=== PATIENT | female | born 1990 | race Caucasian/White ===

== ENCOUNTER 2019-03-31 18:48 | Emergency (ER) | payer OTHER, SELFPAY ==
--- NOTE | 2019-03-31 19:00 | ED.URI ---
HPI - URI/Sore Throat General Chief Complaint: Upper Respiratory Infection Stated Complaint: chest burning, throat pain, fever Time Seen by Provider: 03/31/19 19:01 Source: patient and RN notes reviewed Mode of arrival: ambulatory Limitations: no limitations History of Present Illness MD elicited complaint: fever, cough and sore throat Onset (ago): hour(s) (12) Consistency: constant Severity: moderate Description of mucous: clear Able to tolerate fluids by mouth: Yes Exacerbating factors: deep breaths Relieving factors: OTC cold medicine Context: sick contacts (daughter with positive flu) Associated symptoms: fever, chills, myalgias, rhinorrhea and cough Treatments prior to arrival: cold medicine Related Data Allergies Allergy/AdvReac Type Severity Reaction Status Date / Time No Known Allergies Allergy Unverified 12/15/16 13:22 Review of Systems Review of Systems: All systems reviewed & are unremarkable except as noted in HPI and below PMFSH Past Medical History Medical History (Updated 03/31/19 @ 19:23 by Palmer Mann MD) No active medical problems Surgical History Surgical History (Updated 03/31/19 @ 19:03 by Palmer Mann MD) History of tonsillectomy Family History Family History (Updated 05/19/16 @ 10:55 by DOCTOR UNKNOWN) Mother Diabetes mellitus Social History Social History (Updated 03/31/19 @ 19:03 by Palmer Mann MD) Smoking status: Current every day smoker Second hand tobacco smoke exposure: No Alcohol intake: never Substance use: never Gender identity (if verbalized by the patient): Female Exam Narrative: Exam Narrative: Female nurse in room during examination. Const: General: no acute distress, alert and ill appearing acutely Nutritional Appearance: well nourished Orientation/consciousness: patient oriented x3 HENMT: Head: normal to inspection Ears: external ears normal Face and sinus: normal facial exam Mouth: Yes lip normal and Yes moist mucous membranes Eyes: Conjunctivae: conjunctivae normal Pupils: Equal, round and reactive pupils present EOM: EOMs intact bilaterally Neck: Neck: normal visual inspection Resp: Effort & Inspection: normal respiratory effort Auscultation: rhonchi right upper (Clears with cough) and right lower (Clears with cough) Cardio: Rate: regular rate Rhythm: regular rhythm Heart sounds: no murmurs GI: GI Palp: Yes Soft to palpation and No Tenderness to palpation present (GI) Auscultation: normal bowel sounds Back/Spine/Pelvis: Cervical Spine: cervical ROM normal Thoracic/Lumbar Spine: thoraco-lumbar ROM normal Skin: General skin exam: normal color Rashes: no rashes Neuro: General: patient oriented x3 and moves all extremities Gait exam (Neuro): Normal gait present Extrem: General: normal to inspection and no clubbing, cyanosis or edema Psych: Appearance: grossly normal Mental Status: mental status grossly normal Affect: normal affect Attitude: cooperative Thought content: Yes Normal thought content present Course Vital Signs Vital signs: Vital Signs Temperature 36.6 C 03/31/19 19:03 Pulse Rate 99 03/31/19 19:03 Respiratory Rate 03/31/19 19:03 Blood Pressure 127/79 03/31/19 19:03 Pulse Oximetry 98 03/31/19 19:03 Temperature 36.6 C 03/31/19 19:03 Pulse Rate 118 H 03/31/19 19:47 Respiratory Rate 03/31/19 19:47 Blood Pressure 121/75 03/31/19 19:47 Pulse Oximetry 99 03/31/19 19:47 Discharge Plan Discharge Clinical Impression: Influenza Patient Disposition: Home, Self-Care Condition: Stable Instructions: Influenza (ED) Additional Instructions: Follow-up with primary care physician if not better in 1 week. Tylenol Motrin as needed for fever. Drink plenty of fluids. Prescriptions: New oseltamivir [Tamiflu] 75 mg capsule 75 mg PO BID 5 Days Qty: 10 RF: 0 albuterol sulfate 90 mcg/actuation HFA aerosol inhaler 2 puff INHALATION QID
[2019-03-31 19:03] VITALS: BP 127/79; PULSE 99; RESP 20; TEMP 36.6; O2SAT 98
[2019-03-31] MEDS: IPRATROPIUM 0.5 MG/ALBUTEROL SULFATE 2.5 MG AMPUL.NEB 3 ML INHALATION (19:20)
[2019-03-31 19:32] VITALS: PULSE 99
[2019-03-31] MEDS: OSELTAMIVIR PHOSPHATE 75 MG CAP PO (19:35)
[2019-03-31 19:47] VITALS: BP 121/75; PULSE 118; RESP 20; O2SAT 99
== END 2019-03-31 19:49 | disposition home or self-care (01) ==
PROVIDERS: Emergency Provider Emergency Medicine; PCP Internal Medicine
DX: J11.1 Influenza due to unidentified influenza virus with other respiratory manifestations (principal)
CPT/HCPCS: 94640; 99283; A9270

== ENCOUNTER 2020-02-24 07:49 | Outpatient (CLI) | payer OTHER, MEDICAID, SELFPAY ==
--- NOTE | ~2020-02-24 | US_ITS ---
EXAMINATION: US OB <= 14 weeks fetus DATE: 02/24/2020 08:52 INDICATION: Gestational dating. Amenorrhea. TECHNIQUE: Real-time transabdominal and transvaginal obstetric ultrasound. FINDINGS: No prior studies for comparison. The uterus measures 14.1 x 7.3 x 7.8 cm. There is an intrauterine gestational sac, with pole id entified. The crown rump length measures 2.77 cm, which correlates with a estimated gestational age of 9 weeks 4 days. heart tones are identified measuring 180 BPM. IMPRESSION: 1. SL IUP with an EGA of 9 weeks, 4 days (EDC by current ultrasound of 09/24/2020). Reviewed, dictated and finalized at location A. R DRUM WORKER IMPRESSION: 1. SL IUP with an EGA of 9 weeks, 4 days (EDC by current ultrasound of ).
== END 2020-02-24 07:50 | disposition home or self-care (01) ==
PROVIDERS: PCP Internal Medicine; Visit Provider Student in an Organized Health Care Education/Training Program
DX: Z36.9 Encounter for antenatal screening, unspecified (principal); Z3A.09 9 weeks gestation of pregnancy
CPT/HCPCS: 76801

== ENCOUNTER 2020-03-13 14:46 | Outpatient (CLI) | payer OTHER, MEDICAID, SELFPAY ==
[2020-03-13 15:27] LABS: Basophils Absolute Auto 0.1 K/mm3 (0.0-0.1); Basophils Percent Auto 0.7 % (0.2-1.2); Eosinophils Absolute Auto 0.2 K/mm3 (0-0.3); Eosinophils Percent Auto 2.5 % (0-4.4); Hematocrit 34.8 % (37.0-47.0); Hemoglobin 12.6 g/dL (12.0-15.0); Immature Granulocyte Absolute 0.02 K/mm3 (0.00-0.031); Immature Granulocyte Percent A 0.2 % (0-0.5); Lymphocytes Percent Auto 19.4 % (18.3-44.2); Mean Corpuscular HGB Conc 36.2 g/dl (32-36); Mean Corpuscular Hemoglobin 31.7 pg (26-34); Mean Corpuscular Volume 87.4 fl (80-100); Mean Platelet Volume 10.5 fl (7.4-10.4); Monocytes Absolute Auto 0.7 K/mm3 (0.1-0.6); Monocytes Percent Auto 7.4 % (2.6-8.5); Neutrophils Absolute Auto 6.1 K/mm3 (1.3-6.7); Neutrophils Percent Auto 69.8 % (45.5-73.1); Platelet Count Result 293 k/mm3 (150-375); Red Blood Count 3.98 M/mm3 (4.2-5.4); Red Cell Distribution Width 11.5 % (11.5-14.5); White Blood Count 8.8 K/mm3 (4.5-10.0)
[2020-03-13 15:31] LABS: Add Urine Microscopic? YES; Appearance Urine Clear (Clear); Bacteria Urine Trace /hpf; Bilirubin Urine Negative (Negative); Blood Urine Negative (Negative); Color Urine Yellow (Yellow); Glucose Urine UA Negative (Negative); Ketones Urine Negative (Negative); Leukocyte Esterase Ur 1+ LEU/UL (NEGATIVE); Mucus Urine Rare /lpf; Nitrate Urine Negative (Negative); Protein Urine Negative (Negative); RBC Urine 0-2 /hpf (0-2); Specific Grav Ur 1.016 (1.001-1.035); Squamous Epithelial Cell Urine Many /hpf (Few); Urobilinogen Urine Negative mg/dL (<2.0)
[2020-03-13 16:09] LABS: Thyroid Stimulating Hormone < 0.015 uIU/mL (0.465-4.680)
[2020-03-13 16:40] LABS: HIV 1/2 Ab P24 Ag Result Negative (Negative)
[2020-03-13 16:47] LABS: Vitamin D 25 Hydroxy 33.9 ng/mL
[2020-03-13 17:12] LABS: Hepatitis B Surface Antigen Negative (Negative); Rubella IgG Antibody 21.7 IU/ML
[2020-03-13 17:18] LABS: Hepatitis C Virus Antibody Negative (Negative)
[2020-03-14 09:10] LABS: Rapid Plasma Reagin Non-Reactive (NonReactive)
== END 2020-03-13 14:47 | disposition home or self-care (01) ==
PROVIDERS: PCP Internal Medicine; Visit Provider Student in an Organized Health Care Education/Training Program
DX: Z34.90 Encounter for supervision of normal pregnancy, unspecified, unspecified trimester (principal); Z3A.00 Weeks of gestation of pregnancy not specified
CPT/HCPCS: 36415; 81001; 82306; 84443; 85025; 86592; 86703; 86762; 86787; 86803; 86850; 86900; 86901; 87086; 87088; 87340; G0432

== ENCOUNTER 2020-03-18 12:46 | Outpatient (CLI) | payer OTHER, MEDICAID, SELFPAY ==
[2020-03-18 14:01] LABS: Thyroid Stimulating Hormone < 0.015 uIU/mL (0.465-4.680)
[2020-03-18 15:54] LABS: Free T4 Free Thyroxine 1.23 ng/mL (0.78-2.19)
[2020-03-20 06:09] LABS: Triiodothyronine T3 Free 3.4 pg/mL (2.3-4.2)
== END 2020-03-18 12:47 | disposition home or self-care (01) ==
LOC: ANHLAB 12:48
PROVIDERS: PCP Internal Medicine; Visit Provider Student in an Organized Health Care Education/Training Program
DX: O99.281 Endocrine, nutritional and metabolic diseases complicating pregnancy, first trimester (principal); Z3A.00 Weeks of gestation of pregnancy not specified; E03.9 Hypothyroidism, unspecified
CPT/HCPCS: 36415; 84439; 84443; 84481

== ENCOUNTER 2020-05-07 10:19 | Outpatient (CLI) | payer OTHER, MEDICAID, SELFPAY ==
--- NOTE | 2020-05-07 10:40 | ECG_ITS ---
Measurements Intervals Bath Rate: 77 P: 32 UT: 133 QRS: 52 QRSD: 90 T: 37 QT: 354 QTc: 403 Interpretive Statements SINUS RHYTHM BORDERLINE ST ABNORMALITY- ANTEROLATERAL LEADS BASELINE WANDER- V3 BORDERLINE ECG Electronically Signed On 05-07-2020 12:01:58 LEAF SUCKER OPERATOR by Baldemar Sánchez D.O.
== END 2020-05-07 10:20 | disposition home or self-care (01) ==
PROVIDERS: PCP Internal Medicine; Visit Provider Student in an Organized Health Care Education/Training Program
DX: R07.9 Chest pain, unspecified (principal); R94.31 Abnormal electrocardiogram [ECG] [EKG]
CPT/HCPCS: 93005

== ENCOUNTER 2020-07-04 09:44 | Outpatient (CLI) | payer OTHER, MEDICAID, SELFPAY ==
[2020-07-04 11:16] LABS: Basophils Absolute Auto 0.1 K/mm3 (0.0-0.1); Basophils Percent Auto 0.5 % (0.2-1.2); Eosinophils Absolute Auto 0.1 K/mm3 (0-0.3); Eosinophils Percent Auto 1.1 % (0-4.4); Hematocrit 28.7 % (37.0-47.0); Hemoglobin 9.6 g/dL (12.0-15.0); Immature Granulocyte Absolute 0.11 K/mm3 (0.00-0.031); Immature Granulocyte Percent A 1.1 % (0-0.5); Lymphocytes Absolute Auto 1.65 K/mm3 (0.9-3.2); Lymphocytes Percent Auto 15.8 % (18.3-44.2); Mean Corpuscular HGB Conc 33.4 g/dl (32-36); Mean Corpuscular Hemoglobin 29.1 pg (26-34); Mean Platelet Volume 10.4 fl (7.4-10.4); Monocytes Absolute Auto 0.6 K/mm3 (0.1-0.6); Monocytes Percent Auto 5.8 % (2.6-8.5); Neutrophils Absolute Auto 7.9 K/mm3 (1.3-6.7); Neutrophils Percent Auto 75.7 % (45.5-73.1); Platelet Count Result 278 k/mm3 (150-375); Red Cell Distribution Width 11.9 % (11.5-14.5); White Blood Count 10.4 K/mm3 (4.5-10.0)
[2020-07-04 11:26] LABS: Glucose 1 Hour PP 50gm Dose 138 mg/dL
== END 2020-07-04 09:45 | disposition home or self-care (01) ==
LOC: ANHLAB 09:46
PROVIDERS: PCP Internal Medicine; Visit Provider Student in an Organized Health Care Education/Training Program
DX: Z34.90 Encounter for supervision of normal pregnancy, unspecified, unspecified trimester (principal); Z3A.00 Weeks of gestation of pregnancy not specified
CPT/HCPCS: 36415; 82947; 85025

== ENCOUNTER 2020-07-11 08:50 | Outpatient (CLI) | payer OTHER, MEDICAID, SELFPAY ==
[2020-07-11 09:30] LABS: Glucose Fasting Gestational 91 mg/dL (>/=95)
[2020-07-11 11:01] LABS: Glucose 1 Hour Gest 154 mg/dL (>/=180)
[2020-07-11 12:02] LABS: Glucose 2 Hour Gest 168 mg/dL (>/= 155)
[2020-07-11 13:03] LABS: Glucose 3 Hour Gest 114 mg/dL (>/=140)
== END 2020-07-11 08:51 | disposition home or self-care (01) ==
PROVIDERS: PCP Internal Medicine; Visit Provider Student in an Organized Health Care Education/Training Program
DX: R73.09 Other abnormal glucose (principal)
CPT/HCPCS: 36415; 82951; 82952

== ENCOUNTER 2020-08-08 09:17 | Observation (INO) | payer OTHER, MEDICAID, SELFPAY ==
[2020-08-08 09:39] VITALS: BP 116/65; PULSE 103
[2020-08-08 09:41] VITALS: BMI 29.2
--- NOTE | 2020-08-08 09:42 | OBADM ---
This patient, Andra Mckeon, admitted to the OB room OB Post 116 for observation. Patient/family oriented to hospital policies and general routines including ID bracelet, bed and alarms, visiting hours, pain management, procedures, bathroom and other care routines, personal items, smoking policy, room service/diet, and visiting hours. Patient/Family are encouraged to report perceived risks to care and to ask questions if they do not understand what they are told or what they should do.
[2020-08-08 10:14] VITALS: BP 116/65; PULSE 93
--- NOTE | 2020-08-08 10:16 | PC.NURSE ---
1008- Spoke with Dr. Urbina, reactive NST, Rom plus negative. Orders to discharge to home.
--- NOTE | 2020-08-28 16:21 | PM.OBTRLD ---
OB - Triage/Final Diagnosis Visit Information Comments/Additional reasons for admission: I have assessed the risk for this patient, Andra Mckeon, and determined that she would benefit from observation care. Final Diagnosis (1) Vaginal discharge during : Code(s): O26.899 - Other specified related conditions, unspecified trimester; N89.8 - Other specified noninflammatory disorders of vagina Status: Acute
== END 2020-08-08 10:15 | disposition home or self-care (01) ==
PROVIDERS: Admitting Provider Student in an Organized Health Care Education/Training Program; PCP Internal Medicine; Visit Provider Student in an Organized Health Care Education/Training Program
DX: O26.893 Other specified pregnancy related conditions, third trimester (principal); N89.8 Other specified noninflammatory disorders of vagina; Z3A.32 32 weeks gestation of pregnancy
CPT/HCPCS: 59025; 84112; G0378; G0379

== ENCOUNTER 2020-08-14 15:22 | Outpatient (CLI) | payer OTHER, MEDICAID, SELFPAY ==
[2020-08-14 16:00] LABS: Basophils Absolute Auto 0.1 K/mm3 (0.0-0.1); Basophils Percent Auto 0.6 % (0.2-1.2); Eosinophils Absolute Auto 0.1 K/mm3 (0-0.3); Hematocrit 26.2 % (37.0-47.0); Hemoglobin 8.3 g/dL (12.0-15.0); Immature Granulocyte Absolute 0.11 K/mm3 (0.00-0.031); Immature Granulocyte Percent A 0.9 % (0-0.5); Lymphocytes Absolute Auto 2.39 K/mm3 (0.9-3.2); Mean Corpuscular HGB Conc 31.7 g/dl (32-36); Mean Corpuscular Hemoglobin 26.9 pg (26-34); Mean Corpuscular Volume 84.8 fl (80-100); Mean Platelet Volume 10.6 fl (7.4-10.4); Monocytes Percent Auto 8.2 % (2.6-8.5); Neutrophils Absolute Auto 8.9 K/mm3 (1.3-6.7); Neutrophils Percent Auto 70.3 % (45.5-73.1); Platelet Count Result 375 k/mm3 (150-375); Red Blood Count 3.09 M/mm3 (4.2-5.4); Red Cell Distribution Width 13.2 % (11.5-14.5); White Blood Count 12.6 K/mm3 (4.5-10.0)
[2020-08-14 16:11] LABS: Alanine Aminotransferase 10 U/L (4-35); Albumin Level 3.8 g/dL (3.5-5.1); Alkaline Phosphatase 110 U/L (38-126); Anion Gap 11 mmol/L (8-16); Aspartate Amino Transferase 18 U/L (14-36); Bilirubin,Total 0.3 mg/dL (0.2-1.3); Blood Urea Nitrogen 4 mg/dL (7-17); Calcium 8.9 mg/dL (8.4-10.2); Carbon Dioxide 19 mmol/L (22-30); Chloride 108 mmol/L (98-107); Estimated Glomerular Filt Rate > 60; Glucose 91 mg/dL (65-105); Potassium 3.3 mmol/L (3.4-5.0); Sodium 138 mmol/L (137-145)
[2020-08-14 16:19] LABS: NT Pro B Type Natriuretic Pept 120 pg/mL (5-100)
[2020-08-14 16:41] LABS: Thyroid Stimulating Hormone 0.348 uIU/mL (0.465-4.680)
[2020-08-14 16:51] LABS: HIV 1/2 Ab P24 Ag Result Negative (Negative)
[2020-08-14 17:16] LABS: Ferritin 6.98 ng/mL (6.24-137)
[2020-08-15 06:49] LABS: Rapid Plasma Reagin Non-Reactive (NonReactive)
== END 2020-08-14 15:23 | disposition home or self-care (01) ==
PROVIDERS: PCP Internal Medicine; Referring Provider Internal Medicine Cardiovascular Disease; Visit Provider Student in an Organized Health Care Education/Training Program
DX: Z34.90 Encounter for supervision of normal pregnancy, unspecified, unspecified trimester (principal); R06.00 Dyspnea, unspecified; Z3A.00 Weeks of gestation of pregnancy not specified
CPT/HCPCS: 36415; 80053; 82728; 83880; 84443; 85025; 86592; 86703; G0432

== ENCOUNTER 2020-08-15 11:11 | Outpatient (CLI) | payer OTHER, MEDICAID, SELFPAY ==
[2020-08-15 11:34] LABS: Immature Reticulocyte Fraction 24.3 % (3.0-15.9); Reticulocyte Percent 2.12 % (0.7-4.3); Reticulocytes Absolute 0.07 B/L (32.2-175.7)
[2020-08-15 11:47] LABS: Iron 29 ug/dL (37-170)
[2020-08-15 11:57] LABS: Percent Iron Saturation 5 % (20-50)
== END 2020-08-15 11:12 | disposition home or self-care (01) ==
LOC: ANHLAB 11:14
PROVIDERS: PCP Internal Medicine; Visit Provider Student in an Organized Health Care Education/Training Program
DX: O99.019 Anemia complicating pregnancy, unspecified trimester (principal); Z3A.00 Weeks of gestation of pregnancy not specified
CPT/HCPCS: 36415; 83540; 83550; 85046

== ENCOUNTER 2020-09-06 22:38 | Observation (INO) | payer OTHER, MEDICAID, SELFPAY ==
[2020-09-07] VITALS (13 sets, daily range): BP systolic 108–136; BP diastolic 58–84; PULSE 86–101; BMI 30.7
[2020-09-07 01:01] LABS: Basophils Absolute Auto 0.1 K/mm3 (0.0-0.1); Basophils Percent Auto 0.6 % (0.2-1.2); Eosinophils Absolute Auto 0.2 K/mm3 (0-0.3); Eosinophils Percent Auto 1.1 % (0-4.4); Hematocrit 31.3 % (37.0-47.0); Hemoglobin 9.8 g/dL (12.0-15.0); Immature Granulocyte Absolute 0.78 K/mm3 (0.00-0.031); Immature Granulocyte Percent A 4.6 % (0-0.5); Lymphocytes Absolute Auto 2.48 K/mm3 (0.9-3.2); Lymphocytes Percent Auto 14.6 % (18.3-44.2); Mean Corpuscular HGB Conc 31.3 g/dl (32-36); Mean Corpuscular Hemoglobin 26.5 pg (26-34); Mean Corpuscular Volume 84.6 fl (80-100); Mean Platelet Volume 10.6 fl (7.4-10.4); Monocytes Absolute Auto 1.4 K/mm3 (0.1-0.6); Monocytes Percent Auto 8.4 % (2.6-8.5); Neutrophils Percent Auto 70.7 % (45.5-73.1); Nucleated Red Blood Cells Absolute Auto 0.1 K/mm3 (0.0-0.012); Nucleated Red Blood Cells Perc 0.5 % (0.0-0.2); Platelet Count Result 328 k/mm3 (150-375); Red Cell Distribution Width 14.1 % (11.5-14.5)
[2020-09-07] MEDS: ONDANSETRON INJ 4 MG/2 ML VIAL IV PUSH (01:18)
--- NOTE | 2020-09-07 02:14 | LDADM ---
This patient, Andra Mckeon, was admitted to Labor/Delivery/Recovery 104 on 09/06/20 at 22:38. Plans for labor, pain management and were discussed with patient. Patient/family oriented to hospital policies and general routines including ID bracelet, bed and alarms, visiting hours, pain management, procedures, bathroom and other care routines, personal items, smoking policy, room service/diet and guest tray routines, infant security routines, and visiting hours. Patient/Family are encouraged to report perceived risks to care and to ask questions if they do not understand what they are told or what they should do. See OBIX for further documentation.
--- NOTE | 2020-09-07 03:44 | WPDANESEPP ---
Anes - Eval Pre Procedure Procedure: labor epidural Date/Time: 09/07/20 03:44 Surgeon: jose armando Pre Op Diagnosis: Contractions Patient Data Age: 30 Gender: F Height: Weight: Last Vital Signs Pulse 101 H 09/07/20 03:30 BP 130/76 09/07/20 03:30 Allergies Allergy/AdvReac Type Severity Reaction Status Date / Time No Known Allergies Allergy Verified 09/03/20 12:38 Home Medications Medication Instructions Recorded Confirmed Type prenat.vits,freya,[id number]-ghcv-fotzb 1 tablet PO DAILY 02/14/20 09/03/20 History ondansetron 4 mg disintegrating 4 mg PO Q6H PRN #30 tablet 03/15/20 09/03/20 Rx tablet lansoprazole 15 mg capsule,delayed 15 mg PO DAILY 06/04/20 09/03/20 History release ferrous sulfate 325 mg (65 mg 325 mg PO DAILY #90 tablet 07/04/20 09/03/20 Rx iron) tablet Laboratory Tests 09/07/20 09/07/20 00:41 00:41 WBC 17.0 K/mm3 H K/mm3 (4.5-10.0) RBC 3.70 M/mm3 L M/mm3 (4.2-5.4) Hgb 9.8 g/dL L g/dL (12.0-15.0) Hct 31.3 % L % (37.0-47.0) MCV 84.6 fl fl (80-100) MCH 26.5 pg pg (26-34) MCHC 31.3 g/dl L g/dl (32-36) RDW 14.1 % % (11.5-14.5) Plt Count 328 k/mm3 k/mm3 (150-375) MPV 10.6 fl H fl (7.4-10.4) Immature Gran % (Auto) 4.6 % H % (0-0.5) Neut % (Auto) 70.7 % % (45.5-73.1) Lymph % (Auto) 14.6 % L % (18.3-44.2) [place] % (Auto) 8.4 % % (2.6-8.5) Eos % (Auto) 1.1 % % (0-4.4) Baso % (Auto) 0.6 % % (0.2-1.2) Lymph # (Auto) 2.48 K/mm3 K/mm3 (0.9-3.2) [place] # (Auto) 1.4 K/mm3 H K/mm3 (0.1-0.6) Eos # (Auto) 0.2 K/mm3 K/mm3 (0-0.3) Baso # (Auto) 0.1 K/mm3 K/mm3 (0.0-0.1) Abs Immat Gran (auto) 0.78 K/mm3 H K/mm3 (0.00-0.031) Absolute Neuts (auto) 12.0 K/mm3 H K/mm3 (1.3-6.7) Absolute Nucleated RBC 0.1 K/mm3 H K/mm3 (0.0-0.012) Nucleated RBC % 0.5 % H % (0.0-0.2) Blood Type A Positive Antibody Screen Negative Patient hx anesthesia problems: none Family hx anesthesia problems: none PMFSH Past Medical History Medical History Anxiety Depression History of vaginal delivery x2 Surgical History Surgical History History of tonsillectomy [place] teeth removed Family History Family History Mother Diabetes mellitus Kidney malignancy Grandparent Acute myocardial infarction Hypertension Father Hyperlipidemia Sibling Uterine cancer Social History Social History Smoking status: Never smoker Second hand tobacco smoke exposure: No Alcohol intake: never Substance use: never Gender identity (if verbalized by the patient): Female Spiritual care concerns: No Exam Day of Procedure 09/07/20 03:44
--- NOTE | 2020-10-08 11:07 | PM.OBTRLD ---
OB - Triage/Final Diagnosis Visit Information Comments/Additional reasons for admission: I have assessed the risk for this patient, Andra Mckeon, and determined that she would benefit from observation care. Evaluation Laboratory results: Laboratory Tests 09/07/20 09/07/20 09/07/20 00:41 00:41 00:41 WBC 17.0 H RBC 3.70 L Hgb 9.8 L Hct 31.3 L MCV 84.6 MCH 26.5 MCHC 31.3 L RDW 14.1 Plt Count 328 MPV 10.6 H Immature Gran % (Auto) 4.6 H Neut % (Auto) 70.7 Lymph % (Auto) 14.6 L Buchanan % (Auto) 8.4 Eos % (Auto) 1.1 Baso % (Auto) 0.6 Lymph # (Auto) 2.48 Buchanan # (Auto) 1.4 H Eos # (Auto) 0.2 Baso # (Auto) 0.1 Abs Immat Gran (auto) 0.78 H Absolute Neuts (auto) 12.0 H Absolute Nucleated RBC 0.1 H Nucleated RBC % 0.5 H RPR Cancelled Blood Type A Positive Antibody Screen Negative Final Diagnosis (1) False labor: Code(s): O47.9 - False labor, unspecified Status: Acute
== END 2020-09-07 08:05 | disposition home or self-care (01) ==
PROVIDERS: Admitting Provider Obstetrics & Gynecology; PCP Internal Medicine; Visit Provider Obstetrics & Gynecology
DX: O47.9 False labor, unspecified (principal); Z3A.00 Weeks of gestation of pregnancy not specified
CPT/HCPCS: 36415; 85025; 86592; 86850; 86900; 86901; 96374; G0378; G0379; J2405

== ENCOUNTER 2020-09-09 01:27 | Inpatient (IN) | payer OTHER, MEDICAID, SELFPAY ==
[2020-09-09] VITALS (14 sets, daily range): BP systolic 105–138; BP diastolic 65–84; PULSE 81–121; RESP 16–18; TEMP 36.2–36.9; O2SAT 99; BMI 25.5
--- NOTE | 2020-09-09 01:27 | LDADM ---
This patient, Andra Mckeon, was admitted to Labor/Delivery/Recovery 104 on 09/09/20 at 01:27. Plans for labor, pain management and were discussed with patient. Patient/family oriented to hospital policies and general routines including ID bracelet, bed and alarms, visiting hours, pain management, procedures, bathroom and other care routines, personal items, smoking policy, room service/diet and guest tray routines, infant security routines, and visiting hours. Patient/Family are encouraged to report perceived risks to care and to ask questions if they do not understand what they are told or what they should do. See OBIX for further documentation.
[2020-09-09] MEDS: OXYTOCIN 30 UNITS/NS 500 ML 30 UNITS/500 ML BAG 999 UNITS IV CONT (02:10)
[2020-09-09] MEDS: LACTATED RINGERS 1,000 ML 999 ML IV CONT (02:10)
--- NOTE | 2020-09-09 02:25 | PM.IMHP ---
H&P: HPI History of Present Illness Date/Time: 09/09/20 02:25 Patient a at 37 weeks by EDC 09/29/20 consistent with a 7 weeks ultrasound, presented with complaints of regular painful contractions starting at 12am on 09/09/20. On admission to and D she was 6cm dilated and intact. Shortly after arriving on and D she had SROM clear and delivered vaginally by nurse. PNC significant for advanced cervical dilation and anemia of . Labs reviewed. GBS neg. Chief Complaint: Contractions Review of Systems Review of Systems: All systems reviewed & are unremarkable except as noted in HPI and below Constitutional: Constitutional: Reports no additional constitutional complaints and Denies headache(s) Eyes: Eyes: Denies spots in vision ENT: Reports system reviewed and no additional complaints, except as documented and Denies headache(s) Cardiovascular: Cardiovascular: Denies chest pain and Denies dyspnea Respiratory: Respiratory: Denies dyspnea Gastrointestinal: Gastrointestinal: Reports no additional gastrointestinal complaints Genitourinary: Genitourinary: Reports amenorrhea Musculoskeletal: Musculoskeletal: Reports no additional musculoskeletal complaints Integumentary/Breasts: Skin/Breast: Denies breast mass and Denies rash Neurologic: Denies headache(s) Psychiatric: Psychiatric: Reports no additional psychiatric complaints PMFSH Past Medical History Medical History Anxiety Depression History of vaginal delivery x2 Surgical History Surgical History History of tonsillectomy [place] teeth removed Family History Family History Mother Diabetes mellitus Kidney malignancy Grandparent Acute myocardial infarction Hypertension Father Hyperlipidemia Sibling Uterine cancer Social History Social History Smoking status: Never smoker Second hand tobacco smoke exposure: No Alcohol intake: never Substance use: never Gender identity (if verbalized by the patient): Female Spiritual care concerns: No Meds Home Medications and Allergies Home Medications Medication Instructions Recorded Confirmed Type prenat.vits,freya,rak-fskg-psltp 1 tablet PO DAILY 02/14/20 09/03/20 History ondansetron 4 mg disintegrating 4 mg PO Q6H PRN #30 tablet 01/15/21 07/06/21 Rx tablet lansoprazole 15 mg capsule,delayed 15 mg PO DAILY 06/04/20 09/03/20 History release ferrous sulfate 325 mg (65 mg 325 mg PO DAILY #90 tablet 07/04/20 09/03/20 Rx iron) tablet Allergies Allergy/AdvReac Type Severity Reaction Status Date / Time No Known Allergies Allergy Verified 09/03/20 12:38 Vital Signs Vital Signs - 24 hr 09/09/20 01:57 09/09/20 02:16 Pulse Rate 121 H 120 H Blood Pressure 114/84 122/78 Exam Const: General: no acute distress Eyes: General: appearance normal, both eyes and all related structures Resp: Effort & Inspection: normal respiratory effort Cardio: Rate: regular rate GI: Other: Gravid no fundal tenderness no right upper quadrant pain : External Female Exam: normal external appearance Other: cervix exam on admission, 6cm bulging bag Skin: General skin exam: no rashes or lesions noted Neuro: Cognition (Neuro): normal cognition Extrem: General: normal to inspection Psych: Mental Status: mental status grossly normal Assessment and Plan Assessment and plan (1) Active labor at term: Status: Acute Assessment and Plan: 1. Admit 2. Routine labor and care.
--- NOTE | 2020-09-09 02:36 | P.PCNOB_ITS ---
OB - Delivery Note Procedure Delivery date: 09/09/20 Procedure: Spontaneous vaginal delivery. Intrapartal events: Precipitous Labor < 3 hours Induction method: none Delivery monitor: external FHT Route of delivery: Laceration Description: None Quantitative Blood Loss (ml): 150 Anesthesia type: None Disposition: floor Complications: None Narrative: Patient admitted at 6 cm. She requested epidural. Prior to epidural she had SROM clear at 0153 and she was not able to get epidural. She delivered a male over intact perineum at 0200 by nurse while I was on route to delivery. Venous cord blood was obtained. Cord blood obtained. Placenta delivered spontaneous and intact with trailing membranes. Uterine tone improved with massage and removal clot from lower uterine segment. Patient tolerated procedure well. [place] Baby Date of : 09/09/20 Time of : 02:00 Weeks of gestation at delivery: 37 Infant gender: Male Weight (pounds): 8 Weight (ounces): 10 presentation: vertex Placenta delivery description: Spontaneous score one minute: 9 score five minutes: 9
[2020-09-09 02:38] LABS: Basophils Absolute Auto 0.1 K/mm3 (0.0-0.1); Basophils Percent Auto 0.6 % (0.2-1.2); Eosinophils Absolute Auto 0.2 K/mm3 (0-0.3); Eosinophils Percent Auto 1.2 % (0-4.4); Hematocrit 32.7 % (37.0-47.0); Hemoglobin 10.2 g/dL (12.0-15.0); Immature Granulocyte Absolute 0.42 K/mm3 (0.00-0.031); Immature Granulocyte Percent A 2.9 % (0-0.5); Lymphocytes Absolute Auto 3.07 K/mm3 (0.9-3.2); Lymphocytes Percent Auto 21.2 % (18.3-44.2); Mean Corpuscular HGB Conc 31.2 g/dl (32-36); Mean Corpuscular Hemoglobin 26.6 pg (26-34); Mean Corpuscular Volume 85.4 fl (80-100); Mean Platelet Volume 10.3 fl (7.4-10.4); Monocytes Absolute Auto 1.2 K/mm3 (0.1-0.6); Monocytes Percent Auto 8.5 % (2.6-8.5); Neutrophils Absolute Auto 9.5 K/mm3 (1.3-6.7); Neutrophils Percent Auto 65.6 % (45.5-73.1); Nucleated Red Blood Cells Perc 0.1 % (0.0-0.2); Platelet Count Result 313 k/mm3 (150-375); Red Blood Count 3.83 M/mm3 (4.2-5.4); Red Cell Distribution Width 16.2 % (11.5-14.5); White Blood Count 14.5 K/mm3 (4.5-10.0)
[2020-09-09] MEDS: OXYTOCIN 30 UNITS/NS 500 ML 30 UNITS/500 ML BAG 125 UNITS IV CONT (02:47)
[2020-09-09] MEDS: BENZOCAINE 20% AER SPR (*SP) 56 GM CAN 1 SPRAY TOPICAL (04:11)
[2020-09-09] MEDS: WITCH HAZEL 40 PADS 1 PAD TOPICAL (04:12)
[2020-09-09] MEDS: ACETAMINOPHEN 325 MG TABLET 650 MG PO ×2 (04:22→22:32)
[2020-09-09] MEDS: IBUPROFEN 600 MG TABLET PO ×3 (04:23→22:33)
--- NOTE | 2020-09-09 04:42 | OBPPTRN ---
Patient transferred to post room #290 via wheelchair. Support person present. Oriented to unit, room, information board, rooming in, admission packet and security measures. Patient verbalizes understanding.
[2020-09-09 07:57] LABS: Rapid Plasma Reagin Non-Reactive (NonReactive)
[2020-09-09] MEDS: MULTIVIT/MIN/PREN/FOL AC/IRON TABLET 1 TAB PO (09:09)
--- NOTE | 2020-09-09 10:30 | PC.NURSE ---
Mother called out for assist with feeding. is able to freely thrust tongue past gum ridge. Skin is intact on both nipples, no redness and bruising noted. Discussed the early 37 week with possible challenges of sleepiness, tone and desire to wake to feed. Reviewed feeding cues, frequencies, duration of feedings, feeding elimination flow sheet, and signs of adequate intake. Demonstrated stimulation techniques to wake infant for feeding. Assisted with to breast. Reviewed positioning/alignment in cross cradle, holding breast in ?U? hold and guided asymmetrical latch on. Mother was attempting in cradle, infant was not drawing nipple in deeply. Several attempts before infant able to latch correctly. nursed eagerly, with steady draws and frequent swallowing noted. Reviewed signs of a correct latch, effective nursing and suck swallow ratio. would slip to shallow latch, mother reports tenderness. Demonstrated how to adjust latch more deeply while feeding. Mother reports she can feel change in latch and has no tenderness. Nipple care reviewed of lanolin after feedings, warm compresses as needed. Suggested mother stimulate while feeding to increase stimulate, increase intake and to assist with maintaining deep latch. Instructed mother to call out for RN assistance if she is unable to latch infant for feeding or she has discomfort with nursing.
[2020-09-10 05:46] LABS: Hematocrit 29.6 % (37.0-47.0)
--- NOTE | 2020-09-10 07:55 | PC.NURSE ---
Mother called out for assist with feeding, reporting has been fussy for over an hour with constant on and off . Mother is concerned is not getting enough and wishes to supplement. Reviewed is WNL for all signs of adequate intake and supplementing is her choice. Discussed infants will freq. cluster feed to stimulate supply. Suggested mother pace feed small amounts of 20mls after . is able to freely thrust tongue past gum ridge. Skin is intact on both nipples, no redness and bruising noted. Reviewed infant feeding cues, frequencies, duration of feedings, feeding elimination flow sheet, and signs of adequate intake. Demonstrated stimulation techniques to wake for feeding. Assisted with to breast. Reviewed positioning/alignment in cross cradle, holding breast in ?U? hold and guided asymmetrical latch on. Infant able to latch correctly. Infant nursed eagerly, with steady draws and frequent swallowing noted. Reviewed signs of a correct latch, effective nursing and suck swallow ratio. Infant was able to maintain latch without discomfort to mother. Demonstrated how to adjust latch more deeply while feeding. Mother reports she can feel change in latch and has no tenderness. Nipple care reviewed of lanolin after feedings, warm compresses as needed. Suggested mother stimulate while feeding to increase stimulate, increase intake and to assist with maintaining deep latch. Mother is able to independently latch with appropriate positioning/alignment. She denies any nipple discomfort, is feeding as required and waking to feed if needed. Infant has had at least 8 effective feedings in the past 24 hours, and is currently meeting outcomes for weight, output, jaundice and feeding frequencies. Mother states she feels confident to continue effective at home. Reviewed transition to breast milk, signs of adequate intake, and engorgement/relief. Instructed to call ICP if intake/output less than required. Reviewed regular medications mother is taking. Information provided per Bhavani. Reviewed community resources on the [employer] website and in the Mom/Baby guide. Information on outpatient services provided. Mother has no further questions at this time.
[2020-09-10 08:35] VITALS: BP 94/55; PULSE 79; RESP 16; TEMP 36.8; O2SAT 99
--- NOTE | 2020-09-10 09:06 | PM.OBPNVD ---
OB - PN: Subj Subjective Date/time seen: 09/10/20 09:06 Patient doing well this morning. Denies headache, chest pain, shortness of breath, nausea, or vomiting. Minimal lochia. Voiding well. Ambulating without difficulty. OB - PN: Obj Data Labs CBC & Chem 7: 09/10/20 03:43 Labs: Laboratory Results - last 24 hr 09/10/20 03:43 Hgb 9.0 L Hct 29.6 L OB - PN A/P Assessment and Plan (1) Normal spontaneous vaginal delivery: Code(s): O80 - Encounter for full-term uncomplicated delivery Status: Acute Assessment and Plan: PPD#1 doing well plan is to dc home in stable condition emergency precautions reviewed june f/u in office in 4-6 weeks Time Spent With Patient Time: Total time spent is greater than 50% in coordination of care (as documented) at patient's floor/unit and/or counseling patient: Exam Const: General: cooperative, healthy appearing, comfortable and no acute distress GI: Inspection: non-distended GI Palp: Yes Soft to palpation and No Tenderness to palpation present (GI) Other: fundus firm below umbilicus Extrem: Right lower extremity: no edema Left lower extremity: no edema Other: no calf tenderness
--- NOTE | 2020-09-10 09:12 | PM.OBDSVD ---
DS: Admitting Diagnosis Admitting Diagnosis Admitting Diagnosis: Active labor OB - DS: Summary OB Procedures : None OB Procedures Intrapartum: Spontaneous Vag Delivery OB Procedures: : None Time Spent with Patient Time attestation: Total time spent providing and/or coordinating discharge services: DS: Data Data Completed and Pending Labs on day of discharge: Labs from last 24 hours 09/10/20 03:43 Hgb 9.0 L Hct 29.6 L Discharge Plan Discharge Attending physician on discharge: Alina Urbina Discharging Clinician: Alina Urbina Anticipated Discharge Date/Time: 09/10/20 09:12 Patient Disposition: Home, Self-Care Activity: as tolerated and pelvic rest Diet: regular Discharge Instructions: Call office ([phone]) to schedule a visit in 4-6 weeks. You may take Ibuprofen 600mg every 6 hours as needed for pain. Pain medication may make you constipated. It may be helpful to take an [id number] stool softener, such as Colace and/or Senokot, along with the pain medication to help lessen constipation. Call office or go to ED for pain not controlled with medication, headache, chest pain, shortness of breath, fever, chills, persistent nausea or vomiting, severe abdominal pain, heavy vaginal bleeding >2 pads/hour, foul vaginal discharge or odor, or problems with your breasts. Education: Mom and Baby Guide Given to: Mother Follow-Up: Call your delivering provider's office for an appointment to be seen in: 6 Weeks Mom and baby should come to the [facility] for the follow-up appointment. Appointment Date/Time: September 12, 2020 at 11:00 am What to expect at your follow-up visit: Blood Pressure Check Physical Assessment Call [phone] if you are unable to keep your appointment time. BREAST CARE: * Wear a snug supportive bra. * For engorgement discomfort: Breast Feeding: * Apply warm moist washcloths * Express milk as needed to relieve engorgement * Wear loose clothing * For sore nipples: * Identify correct latch-on * Apply warm moist washcloths before and after nursing * Air dry nipples after nursing * May apply Lansinoh cream to nipples EPISIOTOMY/PERINEAL CARE: * Until bleeding stops, use your diana bottle after urinating * Change your pad frequently throughout the day * You may take sitz baths several times a day (fill your bathtub with warm water and soak for 20 minutes.) Do NOT bathe in the water * No tub baths until seen by your physician - You may shower ACTIVITY: * Rest as much as possible. * Do not exercise or lift anything heavier than your baby (such as laundry or other children.) * Avoid stairs or driving as much as possible. * Do not put anything into the vagina. No douching, tampons, or sexual activity until seen by physician. NOTIFY PHYSICIAN IF YOU HAVE ANY QUESTIONS OR IF ANY OF THE FOLLOWING SYMPTOMS OCCUR: * If your vaginal area becomes red, swollen, or more painful than what you have experienced in the hospital. * If your vaginal bleeding becomes foul smelling. * If your vaginal bleeding becomes more heavy than a period or if your bleeding changes from pink to bright red. However, you may pass an occasional walnut-sized clot once or twice for the first week . * If you experience a sharp, shooting pain in your calves. * If you discover a hard, reddened area on your breast or if you experience flu-like symptoms. DIET: * Eat regular, well-balanced meals. * Drink plenty of fluids daily. If , drink to thirst. Patient Instructions: Antibiotic Form, Vaginal Delivery (DC) Stand Alone Forms: General Discharge Information Follow-up/Referrals: Alina Urbina MD [Physician] - Discharge Medications: Continued ferrous sulfate 325 mg (65 mg iron) tablet 325 mg PO DAILY Qty: 90 RF: 0 prenkarrie.freya quinonez m
[2020-09-10 10:30] VITALS: PULSE 79; RESP 16; O2SAT 99
[2020-09-10] MEDS: MULTIVIT/MIN/PREN/FOL AC/IRON TABLET 1 TAB PO (11:38)
[2020-09-10] MEDS: POLYSACCHARIDE IRON COMPLEX 150 MG CAPSULE PO (11:38)
[2020-09-10] MEDS: DOCUSATE SODIUM 100 MG CAPSULE PO (11:38)
[2020-09-10] MEDS: IBUPROFEN 600 MG TABLET PO (11:39)
[2020-09-12 11:24] VITALS: BP 117/68; PULSE 93; RESP 20; TEMP 37.2; O2SAT 100
== END 2020-09-10 14:20 | disposition home or self-care (01) | DRG 807 ==
LOC: ANHLDR 02:56 → ANHOB2 09-10 06:49 → ANHLDR 09-12 09:59 → ANHOB2 09-12 09:59
PROVIDERS: Admitting Provider Obstetrics & Gynecology; PCP Internal Medicine; Visit Provider Student in an Organized Health Care Education/Training Program
DX: O62.3 Precipitate labor (principal); Z37.0 Single live birth; O99.02 Anemia complicating childbirth; D64.9 Anemia, unspecified; Z3A.37 37 weeks gestation of pregnancy
CPT/HCPCS: 36415; 85014; 85018; 85025; 86592; A9270; J2590; J7120